=== PATIENT | male | born 1950 | race Caucasian/White ===

== ENCOUNTER 2023-07-02 12:07 | Outpatient (AMB) | payer MEDICARE, SELFPAY ==
--- NOTE | 2023-07-02 12:09 | HO.NEPHOV_ITS ---
HPI HPI Comments History of Present Illness Details 73-year-old man with a history of longst anding hypertension when CKD. He is here for semiannual follow-up. Has been monitor his blood pressure at home and systolic blood pressures usually in the 140 mmHg range. He has no specific complaints today. Medications remain unchanged. [facility] Social History (Updated 07/02/23 @ 12:12 by Karen Monroe MA) Alcohol intake: current Alcohol intake frequency: holidays/special occasions only Alcohol type: beer Vital Signs 07/02/23 12:10 Height 6 ft 3 in Weight 244 lb BMI 30.5 BP 115/70 Blood Pressure Location Lt brachial Position Sitting Pulse 70 Pulse Source Pulse Oximeter Pulse Oximetry (%) 98 Oxygen Delivery Method Room Air Physical Exam Vital Signs: Last Vital Signs Pulse 70 07/02/23 12:10 BP 115/70 07/02/23 12:10 Pulse Ox 98 07/02/23 12:10 Oxygen Delivery Method Room Air 07/02/23 12:10 BMI result Body Mass Index 30.5 Const General: comfortable; No acute distress Orientation/consciousness: patient oriented x3 Eyes General: appearance normal, both eyes and all related structures Visual Mehta: normal visual mehta by confrontation Neck Neck: Yes supple and Yes no JVD Resp Effort & Inspection: normal respiratory effort and respiratory effort not decreased Auscultation: rhonchi Cardio Palpation: no palpable S3 and no palpable S4 Heart sounds: no rubs GI Inspection: Yes normal to inspection Palpation (GI): Soft to palpation Percussion: Yes normal to percussion Auscultation: normal bowel sounds General: Yes no CVA tenderness Back/Spine/Pelvis Back: no CVA tenderness Skin General skin exam: no petechiae and no purpura Neuro General: patient oriented x3 and no focal motor deficits Extrem General: No clubbing and No edema Assessment & Plan Assessment & Plan (1) HTN (hypertension): Code(s): I10 - Essential (primary) hypertension (2) CKD (chronic kidney disease): Code(s): N18.9 - Chronic kidney disease, unspecified Plan Scooby is a elderly man with mild CKD in setting of longstanding hypertension. Renal function stable with a serum creatinine 1.4 mg pressure dL for the past 2 years. Goal is to slow the progression of renal disease. Blood pressure needs to be maintained less than 130 mm of mercury systolic. Increase to stand low-sodium diet Increase p.o. fluid intake. Continue to avoid nephrotoxic agents including NSAIDs. No changes were made to his antihypertensive medications. Regarding the hypertension, the office setting was acceptable today. However his home readings have been elevated. Scooby tells me that his blood pressure has been persistently elevated at home and today's reading we are not the usual. Therefore I will obtain a 24 hour ambulatory blood pressure monitoring. Orders: Orders AMB 24 Hour Blood Pressure Monitor PLACEMENT 4 Weeks I10 - Essential (primary) hypertension Blood Urea Nitrogen 6 Months I10 - Essential (primary) hypertension, N18.9 - Chronic kidney disease, unspecified Electrolytes 6 Months I10 - Essential (primary) hypertension, N18.9 - Chronic kidney disease, unspecified Creatinine 6 Months I10 - Essential (primary) hypertension, N18.9 - Chronic kidney disease, unspecified Calcium 6 Months I10 - Essential (primary) hypertension, N18.9 - Chronic kidney disease, unspecified Coding Level of Care Code Est Pt Level 4 (88906) Diagnoses HTN (hypertension) I10 CKD (chronic kidney disease) N18.9 Results Reviewed Results Reviewed: BUN 27 creatinine 1.4 as of 06/27/2023. Renal function has been stable for the last 2 years. Nephrology Results: No Data to Display
[2023-07-02 12:10] VITALS: BP 115/70; PULSE 70; O2SAT 98; BMI 30.5
== END 2023-07-02 12:32 | disposition home or self-care (01) ==
PROVIDERS: PCP Internal Medicine; Visit Provider Internal Medicine Hypertension Specialist
DX: I12.9 Hypertensive chronic kidney disease with stage 1 through stage 4 chronic kidney disease, or unspecified chronic kidney disease (principal); N18.9 Chronic kidney disease, unspecified
CPT/HCPCS: 99214

== ENCOUNTER → 2023-07-02 12:07 | Outpatient (BNVA) | payer MEDICARE, SELFPAY | PROVIDERS: PCP Internal Medicine; Visit Provider Internal Medicine Hypertension Specialist | DX: I12.9 Hypertensive chronic kidney disease with stage 1 through stage 4 chronic kidney disease, or unspecified chronic kidney disease (principal); N18.9 Chronic kidney disease, unspecified | CPT/HCPCS: 99212 ==

== ENCOUNTER → 2023-11-21 08:48 | Outpatient (BNVA) | payer MEDICARE, SELFPAY | PROVIDERS: PCP Internal Medicine; Visit Provider Internal Medicine Hypertension Specialist ==

== ENCOUNTER 2023-11-22 08:49 | Outpatient (BNV) | payer MEDICARE, SELFPAY ==
--- NOTE | 2023-11-26 15:00 | HO.NEPHOV ---
Intake Visit Reasons: 24 Hour BP Monitor Allergies No Known Allergies Allergy (Verified 07/02/23 12:16) PFSH Social History (Updated 07/02/23 @ 12:12 by Karen Monroe MA) Alcohol intake: current Alcohol intake frequency: holidays/special occasions only Alcohol type: beer Results Reviewed Nephrology Results: No Data to Display Assessment & Plan Assessment & Plan (1) HTN (hypertension): Code(s): I10 - Essential (primary) hypertension Category: Medical Plan HTN Orders: Orders AMB 24HR B/P Monitor INTERPRETATION Today I10 - Essential (primary) hypertension Coding Level of Care Code Procedure Only Diagnoses HTN (hypertension) I10
== END 2023-11-22 08:50 ==
PROVIDERS: PCP Internal Medicine; Visit Provider Internal Medicine Hypertension Specialist
DX: I10 Essential (primary) hypertension (principal)
CPT/HCPCS: 93790

== ENCOUNTER → 2023-11-22 08:49 | Outpatient (BNVA) | payer MEDICARE, SELFPAY | PROVIDERS: PCP Internal Medicine; Visit Provider Internal Medicine Hypertension Specialist ==

== ENCOUNTER 2023-12-31 10:51 | Outpatient (AMB) | payer MEDICARE, SELFPAY ==
[2023-12-31 11:03] VITALS: BP 138/72; PULSE 63; O2SAT 97; BMI 30.4
--- NOTE | 2023-12-31 11:03 | HO.NEPHOV_ITS ---
Vital Signs 12/31/23 11:03 Height 6 ft 3 in Weight 243 lb BMI 30.4 BP 138/72 Blood Pressure Location Rt brachial Position Sitting Pulse 63 Pulse Source Pulse Oximeter Pulse Oximetry (%) 97 Oxygen Delivery Method Room Air Intake Visit Reasons: 6 mon follow up/ Conf Central Sterile Technician Required: No Accompanied by: Self / Same As Patient Allergies No Known Allergies Allergy (Verified 12/31/23 11:05) HPI Comments Details: 73-year-old man with a history of longstanding hypertension when CKD. He is here for semiannual follow-up. Has been monitor his blood pressure at home and systolic blood pressures usually in the 140 mmHg range. He has no specific complaints today. He underwent 24 hour ABP M. Metoprolol was increased to 100 mg by his his system architect about a month ago. [facility] Social History Alcohol intake: current Alcohol intake frequency: holidays/special occasions only Alcohol type: beer Physical Exam Vital Signs: Last Vital Signs Pulse 63 12/31/23 11:03 BP 138/72 12/31/23 11:03 Pulse Ox 97 12/31/23 11:03 Oxygen Delivery Method Room Air 12/31/23 11:03 BMI result Body Mass Index 30.4 Const General: comfortable; No acute distress Orientation/consciousness: patient oriented x3 Eyes General: appearance normal, both eyes and all related structures Visual Mcconnell: normal visual mcconnell by confrontation Neck Neck: Yes supple and Yes no JVD Resp Effort & Inspection: normal respiratory effort and respiratory effort not decreased Auscultation: rhonchi Cardio Palpation: no palpable S3 and no palpable S4 Heart sounds: no rubs GI Inspection: Yes normal to inspection Palpation (GI): Soft to palpation Percussion: Yes normal to percussion Auscultation: normal bowel sounds General: Yes no CVA tenderness Back/Spine/Pelvis Back: no CVA tenderness Skin General skin exam: no petechiae and no purpura Neuro General: patient oriented x3 and no focal motor deficits Extrem General: No clubbing and No edema Results Reviewed Results Reviewed: BUN 30 creatinine 1.39 as of 01/10/2024 Nephrology Results: No Data to Display Assessment & Plan Assessment & Plan (1) HTN (hypertension): Code(s): I10 - Essential (primary) hypertension Category: Medical (2) CKD (chronic kidney disease): Code(s): N18.9 - Chronic kidney disease, unspecified Category: Medical (3) Renal cyst: Code(s): N28.1 - Cyst of kidney, acquired Category: Medical Plan . Scooby is a 73-year-old man with mild CKD in setting of longstanding hypertension. Renal function stable with a serum creatinine 1.4 mg / dL for the past 2 years. Goal is to slow the progression of renal disease. Blood pressure needs to be maintained less than 130 mm of mercury systolic. Encouraged to stay on low-sodium diet Increase p.o. fluid intake. Continue to avoid nephrotoxic agents including NSAIDs. No changes were made to his antihypertensive medications. ABPM showed well-controlled hypertension with nocturnal dipping. Renal ultrasonogram done in 09/11/2023 revealed 6 mm cyst on the right kidney. He has been followed by Urology Dr. Armas Orders: Orders Basic Metabolic Panel 11 Months I10 - Essential (primary) hypertension Coding Level of Care Code Est Pt Level 4 (40939) Diagnoses HTN (hypertension) I10 CKD (chronic kidney disease) N18.9 Renal cyst N28.1
== END 2023-12-31 11:28 | disposition home or self-care (01) ==
PROVIDERS: PCP Internal Medicine; Visit Provider Internal Medicine Hypertension Specialist
DX: I12.9 Hypertensive chronic kidney disease with stage 1 through stage 4 chronic kidney disease, or unspecified chronic kidney disease (principal); N18.9 Chronic kidney disease, unspecified; N28.1 Cyst of kidney, acquired
CPT/HCPCS: 99214

== ENCOUNTER → 2023-12-31 10:51 | Outpatient (BNVA) | payer MEDICARE, SELFPAY | PROVIDERS: PCP Internal Medicine; Visit Provider Internal Medicine Hypertension Specialist | DX: I12.9 Hypertensive chronic kidney disease with stage 1 through stage 4 chronic kidney disease, or unspecified chronic kidney disease (principal); N18.9 Chronic kidney disease, unspecified; N28.1 Cyst of kidney, acquired | CPT/HCPCS: 99212 ==

== ENCOUNTER 2024-12-30 09:14 | Outpatient (AMB) | payer MEDICARE, SELFPAY ==
--- NOTE | 2024-12-30 09:25 | HO.NEPHOV_ITS ---
Vital Signs 12/30/24 09:26 Height 6 ft 3 in Weight 235 lb BMI 29.4 BP 138/72 Blood Pressure Location Lt brachial Position Sitting Pulse 75 Pulse Source Pulse Oximeter Pulse Oximetry (%) 97 Oxygen Delivery Method Room Air Intake Visit Reasons: CKD Laborer Pipeline Required: No Accompanied by: Self / Same As Patient Allergies No Known Allergies Allergy (Verified 12/30/24 09:28) Medication List - Last Reconciled 12/30/24 by Anival Georges MD amlodipine 10 mg PO DAILY apixaban (Eliquis) 5 mg PO BID atorvastatin 40 mg PO DAILY buspirone 15 mg PO DAILY chlorthalidone 25 mg PO DAILY metoprolol succinate ER 100 mg PO DAILY sertraline 50 mg PO DAILY HPI Comments Details: Pleasant man with a history of longstanding hypertension when CKD. Has been monitor his blood pressure at home and systolic blood pressures usually in the 140 mmHg range. He has no specific complaints today. He underwent 24 hour ABPM. Metoprolol was increased to 100 mg by his his process development chemist about a month ago. 12/30/24 74-year-old male presenting with a routine follow-up for kidney disease management. His blood pressure management includes metoprolol, amlodipine, and chlorthalidone, which have effectively maintained his blood pressure. At home, t he patient occasionally notes readings in the low 140s, but prior office visits document stability with blood pressure measured at 138/72 mmHg and 128/70 mmHg in a cardiology consult. His renal function had slight changes, with recent labs showing creatinine at 1.5 and a BUN near 31, closely matching his values from three years prior. The patient describes lightheadedness on standing quickly, a symptom previously noted to his doctors but deemed non-urgent. On the urological front, the patient's history of benign prostatic hyperplasia surgery 13 years ago led to a persistently weakened urine stream but without serious obstruction symptoms. A year's previous ultrasound indicated a mildly elevated post-void residual but was not concerning. [facility] Social History Alcohol intake: current Alcohol intake frequency: holidays/special occasions only Alcohol type: beer Physical Exam Vital Signs: Last Vital Signs Pulse 75 12/30/24 09:26 BP 138/72 12/30/24 09:26 Pulse Ox 97 12/30/24 09:26 Oxygen Delivery Method Room Air 12/30/24 09:26 BMI result Body Mass Index 29.4 Const General: comfortable; No acute distress Orientation/consciousness: patient oriented x3 Eyes General: appearance normal, both eyes and all related structures Visual Mehta: normal visual mehta by confrontation Neck Neck: Yes supple and Yes no JVD Resp Effort & Inspection: normal respiratory effort and respiratory effort not decreased Cardio Palpation: no palpable S3 and no palpable S4 Heart sounds: no rubs GI Inspection: Yes normal to inspection Palpation (GI): Soft to palpation Percussion: Yes normal to percussion Auscultation: normal bowel sounds General: Yes no CVA tenderness Back/Spine/Pelvis Back: no CVA tenderness Skin General skin exam: no petechiae and no purpura Neuro General: patient oriented x3 and no focal motor deficits Extrem General: No clubbing and No edema Results Reviewed Results Reviewed: cr 1.5 Nephrology Results: No Data to Display Assessment & Plan Assessment & Plan (1) HTN (hypertension): Code(s): I10 - Essential (primary) hypertension Category: Medical (2) CKD (chronic kidney disease): Code(s): N18.9 - Chronic kidney disease, unspecified Category: Medical (3) Renal cyst: Code(s): N28.1 - Cyst of kidney, acquired Category: Medical Plan . Scooby is a 74-year-old man with mild CKD in setting of longstanding hypertension. Renal function stable with a serum creatinine 1.4to 1.5 mg / dL for the past 2 years. Goal is to slow the progression of renal disease. Blood pressure needs to be maintained less than 130 mm of mercury systolic. Encouraged to stay on low-sodium diet Increase p.o. fluid intake. Continue to avoid nephrotoxic agents including NSAIDs. No changes were made to his antihypertensive medications. ABPM showed well-controlled hypertension with nocturnal dipping. Renal ultrasonogram done in 09/11/2023 revealed 6 mm cyst on the right kidney. He has been followed by Urology Dr. Armas Will obtain follow up USG in 1 yr for renal cyst and BPH Orders: Orders Complete Blood Count no Diff 1 Year N18.9 - Chronic kidney disease, unspecified US renal BI 1 Year I10 - Essential (primary) hypertension, N18.9 - Chronic kidney disease, unspecified, N28.1 - Cyst of kidney, acquired Basic Metabolic Panel 1 Year N18.9 - Chronic kidney disease, unspecified US bladder 1 Year N18.9 - Chronic kidney disease, unspecified, N28.1 - Cyst of kidney, acquired Coding Level of Care Code Est Pt Level 4 (11962) Diagnoses HTN (hypertension) I10 CKD (chronic kidney disease) N18.9 Renal cyst N28.1
[2024-12-30 09:26] VITALS: BP 138/72; PULSE 75; O2SAT 97; BMI 29.4
--- OUTSIDE RECORDS SUMMARY | 2024-12-30 10:00 | XMS_ITS | Clinical Summary ---
Author Organization [facility] Address [address] [place] [address] Phone Care Team Providers Care Sales Representative Graphic Art Name Role Phone Danelle Valencia MD Primary Care Provider [phone] Allergies No known active allergies Medications Multiple Vitamin (multivitamin) capsule Take 1 capsule by mouth 1 (one) time each day Active atorvastatin (LIPITOR) 40 MG tablet Take 1 tablet by mouth 1 (one) time each day Active busPIRone (BUSPAR) 5 MG tablet Take 15 tablets by mouth in the morning and 15 tablets in the evening. Active citalopram (CeleXA) 20 MG tablet Take 1 tablet by mouth 1 (one) time each day Active chlorthalidone 25 MG tablet Take 1 tablet by mouth 1 (one) time each day 04/08/2021 Active apixaban (ELIQUIS) 5 MG tablet Take 5 mg by mouth in the morning and 5 mg in the evening. 03/14/2022 Active metoprolol succinate XL (TOPROL XL) 50 MG 24 hr tablet Take 50 mg by mouth 1 (one) time each day Do not crush or chew. Active amLODIPine (NORVASC) 10 MG tablet TAKE 1 TABLET BY MOUTH EVERY DAY 90 tablet 6 03/05/2023 Active Active Problems Problem Noted Date Diagnosed Date Anemia 02/10/2021 Chronic kidney disease stage 3 02/10/2021 Hypertensive heart disease without heart failure 02/10/2021 Hypertensive disorder 02/10/2021 Resolved Problems Problem Noted Date Diagnosed Date Resolved Date Diverticular disease 02/10/2021 021 Hypercholesterolemia 02/10/2021 021 Obesity 02/10/2021 04/14/2021 Obstructive sleep apnea syndrome 02/10/2021 04/14/2021 Panic disorder (episodic paroxysmal anxiety) 04/14/2021 Family History Medical History Relation Comments Cancer Father lung Hypertension Mother Cancer Sibling brother colon po lyp Relation Status Comments Father Mother Sibling Social History Tobacco Use Types Packs/Day Years Used Date Smoking Tobacco: Never Smokeless Tobacco: Never Tobacco Cessation:Counseling Given: Not Answered Alcohol Use Standard Drinks/Week Comments Yes 0 (1 standard drink = 0.6 oz pure alcohol) Alcoholic Drinks/day: Occasional social drink Sex and Gender Information Value Date Recorded Sex Assigned at Not on file Legal Sex Male 4:50 PM EST Gender Identity Not on file Sexual Orientation Not on file Last Filed Vital Signs Vital Sign Reading Time Taken Comments Blood Pressure 132/60 12/04/2022 2:05 PM EDT Pulse 62 12/04/2022 2:05 PM EDT Temperature - - Respiratory Rate - - Oxygen Saturation 98% 12/04/2022 2:05 PM EDT Inhaled Oxygen Concentration - - Weight 108 kg (239 lb) 12/04/2022 2:05 PM EDT Height 190.5 cm (6' 3 ) 12/04/2022 2:05 PM EDT Body Mass Index 29.87 12/04/2022 2:05 PM EDT Plan of Treatment Health Maintenance Due Date Last Done Comments Colorectal Cancer Screening: Annual FOBT 2000 Colorectal Cancer Screening: Colonoscopy 2000 Colorectal Cancer Screening: Sigmoidoscopy 2000 Influenza Vaccine (Season Ended) 2025 04/01/2020, 05/21/2012, 05/16/2011 Pneumococcal Vaccine: 50+ Years Completed 07/02/2017, 07/11/2016 Pneumococcal Vaccine: Peds ( 0 to 5 Years) and At-Risk Patients (6 to 49 Years) Discontinued 07/02/2017, 07/11/2016 Hepatitis B Vaccine Aged Out No longe r eligible based on patient's age to complete this topic Insurance [facility] Medicare [facility] Medicare Care Teams Sales Representative Graphic Art Relationship Specialty Start Date End Date Danelle Valencia MD [address] [place] [address], [address] [address] [facility] - General 08/02/20
== END 2024-12-30 09:43 | disposition home or self-care (01) ==
LOC: HO.HKA 09:15
PROVIDERS: PCP Internal Medicine; Visit Provider Internal Medicine Hypertension Specialist
DX: I12.9 Hypertensive chronic kidney disease with stage 1 through stage 4 chronic kidney disease, or unspecified chronic kidney disease (principal); N18.9 Chronic kidney disease, unspecified; N28.1 Cyst of kidney, acquired
CPT/HCPCS: 99214

== ENCOUNTER → 2024-12-30 09:14 | Outpatient (BNVA) | payer MEDICARE, SELFPAY | PROVIDERS: PCP Internal Medicine; Visit Provider Internal Medicine Hypertension Specialist | DX: I12.9 Hypertensive chronic kidney disease with stage 1 through stage 4 chronic kidney disease, or unspecified chronic kidney disease (principal); N18.9 Chronic kidney disease, unspecified; N28.1 Cyst of kidney, acquired | CPT/HCPCS: 99212 ==

== ENCOUNTER 2025-04-19 23:00 | Emergency (ER) | payer MEDICARE, SELFPAY ==
--- NOTE | 2025-04-19 | ECG_ITS ---
Test Reason : chest pain Blood Pressure : */* mmHG Vent. Rate : 65 BPM Atrial Rate : 65 BPM P-R Int : 194 ms QRS Dur : 110 ms QT Int : 416 ms P-R-T Axes : 58 -31 25 degrees QTcB Int : 432 ms Normal sinus rhythm Left axis deviation Abnormal ECG No previous ECGs available Referred By: Generic ED Physician Electronically Signed By: TAVON BARON
--- NOTE | ~2025-04-19 | XR_ITS ---
CLINICAL HISTORY: pain 1 view abdomen Comparison: None provided Findings: No pneumoperitoneum or pneumatosis. No dilated loops of bowel or evidence for bowel obstruction. [id number] colonic stool burden present with a mild rectal stool burden. No acute fractures. IMPRESSION: 1. Nonobstructed bowel-gas pattern. This document has been electronically signed by: Mehran Kumari MD on 04/20/2025 00:42:59
--- NOTE | ~2025-04-19 | XR_ITS ---
CLINICAL HISTORY: pain 1 view chest x-ray. Comparison: None provided. Findings: No consolidation, pneumothorax, or effusion. Subtle interstitial prominence identified within the bilateral lungs, greatest at the lower lungs bilaterally. Heart size normal. Impression: 1. Subtle nonspecific interstitial prominence identified within the lungs, greatest at the lower lungs bilaterally. This may be related to chronic lung changes/scarring, subtle atypical/viral infiltrates, or less likely subtle pulmonary edema. Clinical correlation is advised. No focal pulmonary consolidation. This document has been electronically signed by: Mehran Kumari MD on 04/20/2025 00:33:01
[2025-04-19 23:11] VITALS: BP 150/65; PULSE 69; RESP 18; TEMP 36.6; O2SAT 98; BMI 27.3
[2025-04-19 23:17] LABS: MANUAL DIFF FLAG NO
[2025-04-19 23:18] LABS: Hematocrit 33.9 % (42.0-52.0); Hemoglobin 12.0 g/dl (14.0-18.0); Imm Gran Abs Auto 0.04 X10*3/uL (0.00-0.03); Imm Gran Pct Auto 0.5 % (0.0-0.4); Lymphocytes Absolute Auto 1.9 X10*3/uL (1.2-4.9); Mean Corpuscular HGB Conc 35.4 g/dl (31.0-36.0); Mean Corpuscular Hemoglobin 29.7 pg (27.0-33.0); Mean Corpuscular Volume 83.9 fL (80.0-98.0); NRBC Abs Auto 0.000 X10*3/uL (0.0-0.012); NRBC Pct Auto 0.0 /100WBC (0.0-0.2); Platelet Count 282 X10*3/uL (160-400); Red Blood Count 4.04 X10*6/uL (4.60-5.80); White Blood Count 7.4 X10*3/uL (4.8-10.8)
--- OUTSIDE RECORDS SUMMARY | 2025-04-19 23:23 | XMS_ITS | Clinical Summary ---
Author Organization [facility] Address [address] [place] [address] Phone Care Team Providers Care Duralumin Mechanic Name Role Phone Danelle Valencia MD Primary Care Provider [phone] Allergies No known active allergies Medications Multiple [...] 02/10/2021 04/14/2021 Panic disorder (episodic paroxysmal anxiety) 1 04/14/2021 Family History Medical History Relation Comments [...] Colorectal Cancer Screening: Sigmoidoscopy 2000 Influenza Vaccine (#1) 2025 0, 05/21/2012, 05/16/2011 Pneumococcal Vaccine: 50+ Years Completed 07/02/2017, 07/11/2016 Pneumococcal Vaccine: Peds ( 0 to 5 Years) and At-Risk Patients (6 to 49 Years) Discontinued 07/02/2017, 07/11/2016 Hepatitis B Vaccine Aged Out No longe r eligible based on patient's age to complete this topic Insurance [facility] Medicare [facility] Medicare Care Teams Duralumin Mechanic Relationship Specialty Start Date End Date Danelle Valencia MD [address] [place] [address], [address] [address] [facility] - General 08/02/20
[2025-04-19 23:32] LABS: Alanine Aminotransferase 57 U/L (0-40); Albumin Level 4.3 g/dL (3.5-5.0); Alkaline Phosphatase 112 U/L (39-117); Anion Gap 13 (12-20); Aspartate Amino Transferase 66 U/L (5-37); Blood Urea Nitrogen 31 mg/dL (9-16); Calcium 9.3 mg/dL (8.4-10.2); Carbon Dioxide 29 mmol/L (22-29); Chloride 101 mmol/L (96-108); Creatinine Clr Calc Pharmacy 60.9; Estimated Glomerular Filt Rate 55; Magnesium 2.6 mg/dL (1.6-2.6); Potassium 3.2 mmol/L (3.3-5.1); Sodium 140 mmol/L (135-145); Total Protein 7.1 g/dL (6.5-8.0)
[2025-04-19 23:39] LABS: NT Pro B Type Natriuretic Pept 125.1 pg/mL (<300); Troponin-I High Sensitivity 5.2 ng/L (<3.5-35.0)
--- NOTE | 2025-04-19 23:56 | ED.CHESTPAIN ---
HPI - Chest Pain General Chief Complaint: Chest Pain Stated Complaint: chest pain Time Seen by Provider: 04/19/25 23:32 Source: patient Limitations: no limitations History of Present Illness ED Provider: Roula Pineda PA-C HPI narrative: 74M with past medical history significant for afib on Eliquis, HTN. CKD, anxiety presents to the ED for evaluation of epigastric abdominal pain. Onset of approximately 11pm. Epigastric pain does not radiate. Describes it as a burning sensation, currently 3/10. Alleviated with burping. States last bowel movement was 8pm today. Denies chest pain, dyspnea, diaphoresis, diarrhea/constipation, hematochezia, melena. Related Data Home Medications ?Medication ?Instructions ?Recorded ?Confirmed amlodipine 10 mg tablet 10 mg PO DAILY 07/02/23 12/30/24 atorvastatin 40 mg tablet 40 mg PO DAILY 07/02/23 12/30/24 chlorthalidone 25 mg tablet 25 mg PO DAILY 07/02/23 12/30/24 apixaban 5 mg tablet (Eliquis) 5 mg PO BID 07/04/23 12/30/24 metoprolol succinate 100 mg 100 mg PO DAILY 12/31/23 12/30/24 tablet,extended release 24 hr buspirone 5 mg tablet 15 mg PO DAILY 12/30/24 12/30/24 sertraline 50 mg tablet 50 mg PO DAILY 12/30/24 12/30/24 Allergies Allergy/AdvReac Type Severity Reaction Status Date / Time No Known Allergies Allergy Verified 04/19/25 23:11 Review of Systems Review of Systems: Yes all other systems are reviewed and are negative Constitutional: Constitutional: Denies fever(s) ENT: Denies dysphagia and Denies odynophagia Cardiovascular: Cardiovascular: Reports Epigastric Pain and Denies dyspnea Respiratory: Respiratory: Denies dyspnea Gastrointestinal: Gastrointestinal: Reports abdominal pain, Reports belching, Denies melena, Reports bloating, Denies hematochezia, Denies change in bowel habits, Denies constipation, Denies dysphagia, Reports heartburn, Denies diarrhea, Denies nausea, Denies odynophagia and Denies vomiting Psychiatric: Psychiatric: Reports anxiety PMFSH Past Medical History Attestation statement: The following information was validated with the patient. Social History Social History Alcohol intake: current Alcohol intake frequency: holidays/special occasions only Alcohol type: beer Smoked in Last 30 Days: No Use of substances other than those prescribed or required for medical reasons: No Advance Directives: No Advance Directives Information Provided: No Physical Exam Vital Signs: Vital Signs: Last Vital Signs Temp 97.9 F 04/19/25 23:11 Pulse 69 04/19/25 23:11 Resp 18 04/19/25 23:11 BP 150/65 H 04/19/25 23:11 Pulse Ox 98 04/19/25 23:11 O2 Del Method Room Air 04/19/25 23:11 BMI result Body Mass Index 27.3 Const: General: cooperative, healthy appearing and no acute distress Resp: Effort & Inspection: normal respiratory effort and no cough Auscultation: clear to auscultation bilaterally Cardio: Rate: regular rate Rhythm: regular rhythm GI: Palpation (GI): Soft to palpation, not firm, nontender, no guarding and No Rebound tenderness present Psych: Appearance: grossly normal Mental Status: mental status grossly normal Affect: normal affect Course Reevaluation(s) Reevaluation #1: I Roula Pineda PA-C personally performed the history, physical and assessment. Princess MARIA helped to formulate the documentation Medications Administered Discontinued Medications Generic Name Dose Route Start Last Admin Trade Name Freq PRN Reason Stop Dose Admin Potassium Chloride 20 meq 04/19/25 23:57 04/20/25 00:21 Potassium Chloride Er 20 Meq Tab.Er.Prt PO 04/19/25 23:58 20 meq ONCE ONE Administration Sucralfate 1 gm 04/19/25 23:58 04/20/25 00:21 Sucralfate Oral Suspension 1 Gm/10 Ml Oral.Susp PO 04/19/25 23:59 1 gm ONCE ONE Administration Medical Decision Making Medical Decision Making MDM Narrative: 74M with past medical history significant for afib on Eliquis, HTN. CKD, anxiety presents to the ED for evaluation of epigastric abdominal pain. Onset of approximately 11pm. Epigastric pain does not radiate. Describes it as a burning sensation, currently 3/10. Alleviated with burping. States last bowel movement was 8pm today. Denies chest pain, dyspnea, diaphoresis, diarrhea/constipation, hematochezia, melena. The following differential diagnoses were considered: ACS, acute pancreatitis, acute/chronic mesenteric ischemia, constipation, reflux were considered. EKG not concerning for STEMI. Initial troponin 5.2, repeat pending. Pancreatitis and mesenteric ischemia unlikely due to presentation and benign abdominal exam. AST and ALT only mildly elevated. Abdominal pain likely secondary to reflux exacerbated by mild/moderate stool burden. Labs: No leukocytosis, not anemic, no electrolyte abnormality other than Potassium slightly low at 3.2, potassium administered. Karafate given with positive effect. Delta troponin 4.4 EKG: Normal sinus rhythm, rate of 65, left axis deviation noted, no ischemic changes no ectopy QTC 432 KUB Findings: No pneumoperitoneum or pneumatosis. No dilated loops of bowel or evidence for bowel obstruction. [id number] colonic stool burden present with a mild rectal stool burden. No acute fractures. IMPRESSION: 1. Nonobstructed bowel-gas pattern. CXR Findings: No consolidation, pneumothorax, or effusion. Subtle interstitial prominence identified within the bilateral lungs, greatest at the lower lungs bilaterally. Heart size normal. Impression: 1. Subtle nonspecific interstitial prominence identified within the lungs, greatest at the lower lungs bilaterally. This may be related to chronic lung changes/scarring, subtle atypical/viral infiltrates, or less likely subtle pulmonary edema. Clinical correlation is advised. No focal pulmonary consolidation. Differential Diagnosis Differential Diagnoses: The differential diagnosis associated with the presentation includes See medical decision-making Admission/Observation Consideration of admission/observation: Escalation of care including admission/observation considered Not applicable Lab Data MDM Lab Attestation statement: I reviewed the patient's lab results. 04/19/25 23:07 04/19/25 23:07 Labs: Lab Results 04/19/25 04/20/25 Range/Units 23:07 00:49 WBC 7.4 (4.8-10.8) X10*3/uL RBC 4.04 L (4.60-5.80) X10*6/uL Hgb 12.0 L (14.0-18.0) g/dl Hct 33.9 L (42.0-52.0) % MCV 83.9 (80.0-98.0) fL MCH 29.7 (27.0-33.0) pg MCHC 35.4 (31.0-36.0) g/dl RDW 12.5 (11.0-16.0) % Plt Count 282 (160-400) X10*3/uL MPV 8.9 L (9.4-12.4) fL Immature Gran % (Auto) 0.5 H (0.0-0.4) % Neut % (Auto) 58.2 (45-73) % Lymph % (Auto) 26.1 (20-40) % [place] % (Auto) 11.0 (2-11) % Eos % (Auto) 3.5 (0-4) % Baso % (Auto) 0.7 (0-2) % Lymph # (Auto) 1.9 (1.2-4.9) X10*3/uL [place] # (Auto) 0.8 (0.1-1.2) X10*3/uL Eos # (Auto) 0.3 (0.0-0.4) X10*3/uL Baso # (Auto) 0.1 (0.0-0.2) X10*3/uL Abs Immat Gran (auto) 0.04 H (0.00-0.03) X10*3/uL Absolute Neuts (auto) 4.3 (2.0-8.3) x10*3/uL Absolute Nucleated RBC 0.000 (0.0-0.012) X10*3/uL Nucleated RBC % (auto) 0.0 (0.0-0.2) /100WBC Sodium 140 (135-145) mmol/L Potassium 3.2 L (3.3-5.1) mmol/L Chloride 101 (96-108) mmol/L Carbon Dioxide 29 (22-29) mmol/L Anion Gap 13 (12-20) BUN 31 H (9-16) mg/dL Creatinine 1.29 (0.5-1.4) mg/dL Estim Creat Clear Calc 60.9 Estimated GFR 55 Random Glucose 102 (60-115) mg/dL Calcium 9.3 (8.4-10.2) mg/dL Magnesium 2.6 (1.6-2.6) mg/dL Total Bilirubin 0.4 (0.0-1.0) mg/dL AST 66 H (5-37) U/L ALT 57 H (0-40) U/L Alkaline Phosphatase 112 (39-117) U/L Troponin I High Sens 5.2 4.4 (<3.5-35.0) ng/L NT-Pro-B Natriuret Pep 125.1 (<300) pg/mL Total Protein 7.1 (6.5-8.0) g/dL Albumin 4.3 (3.5-5.0) g/dL Independent Interpretation I performed an independent interpretation of an: EKG Radiology Impression Discussion of test interpretation with radiology: I have reviewed the radiologist's reading. Discharge Plan Discharge Clinical Impression: Epigastric abdominal pain, Constipation Patient Disposition: Home, Self-Care Instructions: Epigastric Pain (ED) Additional Instructions: You presented to the emergency department with epigastric abdominal pain. This pain is likely due to heartburn, acid reflux. This is happens when the acid that's normally in the stomach backs up into the esophagus. It's recommended to wait at least 2 hours after your last meal before you lay down, avoid tight clothing, foods that make your symptoms worse. Common food triggers include coffee, alcohol, chocolate, fatty foods. We encourage you to stop smoking if you smoke as this commonly makes symptoms worse. You were also found to be constipated, this is the likely trigger for your indigestion. Continue to use the [id number] stool softener twice a day. You should take the MiraLax several times a day, until you begin having multiple large volume bowel movements. Once you evacuate your current stool burden, you may require the MiraLax twice daily to maintain regularity. All of your screening labs including 2 cardiac enzymes were normal, there were no concerning changes on the EKG in the chest x-ray is clear. Follow up with your primary care provider as needed. Prescriptions: No Action Eliquis 5 mg tablet 5 mg PO BID chlorthalidone 25 mg tablet 25 mg PO DAILY amlodipine 10 mg tablet 10 mg PO DAILY atorvastatin 40 mg tablet 40 mg PO DAILY metoprolol succinate 100 mg tablet extended release 24 hr 100 mg PO DAILY buspirone 5 mg tablet 15 mg PO DAILY Rx Instructions: 10MG in AM 5MG PM sertraline 50 mg tablet 50 mg PO DAILY Print Language: Turkish
[2025-04-20] MEDS: Sucralfate Oral Suspension 1 GM/10 ML ORAL.SUSP PO (00:21)
[2025-04-20] MEDS: Potassium Chloride ER 20 MEQ TAB.ER.PRT PO (00:21)
[2025-04-20 01:16] LABS: Troponin-I High Sensitivity 4.4 ng/L (<3.5-35.0)
[2025-04-20 01:54] VITALS: BP 150/65; PULSE 69; RESP 18; TEMP 36.6; O2SAT 98
== END 2025-04-20 01:54 | disposition home or self-care (01) ==
PROVIDERS: Physician Assistant Medical; Emergency Provider Emergency Medicine; PCP Internal Medicine
DX: R10.13 Epigastric pain (principal); K59.00 Constipation, unspecified; R07.9 Chest pain, unspecified; I48.91 Unspecified atrial fibrillation; Z79.01 Long term (current) use of anticoagulants; I12.9 Hypertensive chronic kidney disease with stage 1 through stage 4 chronic kidney disease, or unspecified chronic kidney disease; N18.9 Chronic kidney disease, unspecified
CPT/HCPCS: 36415; 71045; 74018; 80053; 83735; 83880; 84484; 85025; 93005; 99283; 99285

== ENCOUNTER → 2025-04-19 23:04 | Outpatient (BNV) | payer MEDICARE, SELFPAY | PROVIDERS: Emergency Provider Emergency Medicine; PCP Internal Medicine; Visit Provider Internal Medicine | DX: R94.31 Abnormal electrocardiogram [ECG] [EKG] (principal); R07.9 Chest pain, unspecified | CPT/HCPCS: 93010 ==

== ENCOUNTER → 2025-04-19 23:40 | Outpatient (BNV) | payer MEDICARE, SELFPAY | PROVIDERS: Emergency Provider Emergency Medicine; PCP Internal Medicine; Visit Provider Radiology Diagnostic Radiology | DX: R07.9 Chest pain, unspecified (principal); R19.5 Other fecal abnormalities; R14.0 Abdominal distension (gaseous) | CPT/HCPCS: 71045; 74018 ==